=== PATIENT | female | born 1990 | race American Indian/Alaskan Native ===

== ENCOUNTER 2018-05-14 20:24 | Outpatient (CLI) | payer OTHER ==
[2018-05-14 20:52] VITALS: BP 119/67
[2018-05-14] MEDS ORDERED: LACTATED RINGERS 1,000 ML IV ONE (21:00)
[2018-05-14 21:28] LABS: Bacteria,Urine 1+ /HPF (Negative); Bilirubin,Urine NEG (Negative); Blood,Urine NEG (Negative); Color,Urine Yellow (Yellow); Mucus,Urine FEW /HPF; Protein,Urine <15 mg/dL mg/dL (Negative)
--- NOTE | 2018-05-14 22:17 | Discharge Summary ---
Providers - Providers Date of discharge: 05/14/18 Attending physician: VANDANA LOPEZ Primary care physician: VANDANA LOPEZ Hospitalization Condition: Good Disposition: DC-01 TO HOME OR SELFCARE - Discharge Diagnoses (1) 33 weeks gestation of Status: Acute (2) Yeast vaginitis Status: Acute Core Measure Documentation - Palliative Care Palliative Care/ Comfort Measures: Not Applicable - Core Measures Any of the following diagnoses?: none Exam - Constitutional Vitals: Temp Pulse Resp BP Pulse Ox 97.4 F L 79 18 119/67 99 05/14/18 21:05 05/14/18 22:00 05/14/18 21:05 05/14/18 20:55 05/14/18 22:00 General appearance: Present: no acute distress - Abdominal Female genitourinary: Present: other (cervix 0/0/-4, +yeast on wet prep, negative pool, negative fern) - Psychiatric Psychiatric: appropriate mood/affect, intact judgment & insight Plan Activity: other (No sex) Weight Bearing Status: Full Weight Bearing Diet: regular Additional Instructions: 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
--- NOTE | 2018-05-14 23:46 | Ultrasound Report ---
FINAL REPORT PROCEDURE: US OB LIMITED TECHNIQUE: Real-time limited sonographic examination was performed for evaluation of fluid volume and position for each fetus with image documentation (1 or more fetuses). CPT 14983 HISTORY: LEAKING OF FLUID; AYANA PRESENTATION COMPARISON: No prior studies are available for comparison. FINDINGS: There is a single fetus in a vertex presentation. The 4 quadrant amniotic fluid volume is 21.1 centimeter. heart rate 146 beats per minute IMPRESSION: There is a single fetus in a vertex presentation. The 4 quadrant amniotic fluid volume measures 21.1 centimeters.
[2018-05-15] MEDS ORDERED: ATIVAN ONE (08:04)
[2018-05-15] MEDS ORDERED: ZOFRAN ONE (08:04)
[2018-05-15] MEDS ORDERED: DILAUDID ONE (08:04)
[2018-05-15] MEDS ORDERED: TRIDIL DRIP 50MG/250ML 0 MG/0 ML BOTTLE ONE (08:05)
== END 2018-05-14 22:45 | disposition home or self-care (01) ==
LOC: TRG 20:24
PROVIDERS: ATTEND Obstetrics & Gynecology
DX: O47.03 False labor before 37 completed weeks of gestation, third trimester (principal); Z3A.33 33 weeks gestation of pregnancy
CPT/HCPCS: 59025; 76815; 81001; J1170; J2060; J2405